=== PATIENT | female | born 1970 | race Caucasian/White ===

== ENCOUNTER 2023-06-05 06:11 | Day surgery (SDC) | payer OTHER ==
[~2023-06-05] VITALS: Ht 162.6 cm; Wt 84.8 kg
[2023-06-05] MEDS ORDERED: fentaNYL citrate 0.05 MG/ML VIAL ONE (07:08)
[2023-06-05] MEDS: LIDOCAINE 2% 1000 MG/50 ML VIAL INJ ONE (07:50)
[2023-06-05] MEDS ORDERED: MORPHINE SULFATE 4 MG/ML SYR ONE (08:25)
[2023-06-05] MEDS: MORPHINE SULFATE 2 MG/ML SYR IVP PRN (08:39)
== END 2023-06-05 09:25 | disposition home or self-care (01) ==
LOC: MDS 06:11 → MMU 06:37 → MDS 09:25
PROVIDERS: ATTEND Internal Medicine Gastroenterology
DX: K75.81 Nonalcoholic steatohepatitis (NASH) (principal); K21.9 Gastro-esophageal reflux disease without esophagitis; E78.00 Pure hypercholesterolemia, unspecified; E11.9 Type 2 diabetes mellitus without complications; F17.210 Nicotine dependence, cigarettes, uncomplicated; Z79.84 Long term (current) use of oral hypoglycemic drugs; Z79.899 Other long term (current) drug therapy
CPT/HCPCS: 47000; 76942; 82948; J2001; J2270; Q0092; J3010

== ENCOUNTER 2023-09-05 09:19 | Day surgery (SDC) | payer OTHER ==
[~2023-09-05] VITALS: Ht 157.5 cm; Wt 81.6 kg
[2023-09-05] MEDS ORDERED: LIDOCAINE 1% 500 MG/50 ML VIAL ONE (12:07)
[2023-09-05] MEDS: fentaNYL citrate 0.05 MG/ML VIAL IVP ONE (13:10)
[2023-09-05] MEDS ORDERED: fentaNYL citrate 0.05 MG/ML VIAL ONE (13:12)
[2023-09-05] MEDS ORDERED: MORPHINE SULFATE 2 MG/ML SYR ONE ×3 (13:43→14:12)
== END 2023-09-05 15:15 | disposition home or self-care (01) ==
LOC: MDS 09:19 → MMU 09:21 → MDS 15:15
PROVIDERS: ATTEND Internal Medicine Gastroenterology
DX: K75.81 Nonalcoholic steatohepatitis (NASH) (principal); E11.9 Type 2 diabetes mellitus without complications; F17.210 Nicotine dependence, cigarettes, uncomplicated; Z79.899 Other long term (current) drug therapy; Z79.84 Long term (current) use of oral hypoglycemic drugs
CPT/HCPCS: 47000; 76942; 82948; J2001; J2270; J3010; Q0092